=== PATIENT | male | born 1980 | race African-American/Black ===

== ENCOUNTER 2016-10-19 16:32 | Emergency (ER) | payer SELFPAY ==
[~2016-10-19 16:32] MED LIST: Iopamidol 370 76% 100 ML VIAL ONE
[2016-10-19] MEDS ORDERED: Sodium Chloride 0.9% 1,000 ML ONE ×2 (17:35→18:37)
[2016-10-19] MEDS ORDERED: Ondansetron HCl/PF 4 MG/2 ML Vial ONE (17:35)
[2016-10-19] MEDS ORDERED: Pantoprazole 40 MG VIAL ONE (17:35)
[2016-10-19 18:54] LABS: #Basophils 0.1 thou/uL (0.0-0.2); #Lymphocytes 1.1 thou/uL (1.20-3.40); #Monocytes 0.8 thou/uL (0.11-0.59); #Neutrophils 2.1 thou/uL (1.40-6.50); %Basophils 1.3 % (0.0-1.0); %Eosinophils 0.5 % (0.0-10.0); %Lymphocytes 27.4 % (21.0-51.0); %Monocytes 18.9 % (0.0-10.0); Hematocrit 45.7 % (42.0-52.0); Mean Platelet Volume 7.9 fL (7.4-10.4); White Blood Cell (WBC) Count 4.1 thou/uL (4.8-10.8)
[2016-10-19 19:06] LABS: ALT (SGPT) 127 U/L (0-55); AST (SGOT) 150 U/L (5-34); Alkaline Phosphatase 87 U/L (40-150); Anion Gap 19 mmol/L (10-20); BUN (Urea Nitrogen) 25 mg/dL (8.9-20.6); Calc. Creatinine Clearance 0 mL/min (70-130); Calcium 9.3 mg/dL (7.8-10.44); Carbon Dioxide 21 mmol/L (22-29); Chloride 102 mmol/L (98-107); Estimated GFR-MDRD 82; Globulin 4.1 g/dL (2.4-3.5); Lipase 4 U/L (8-78); Protein, Total 8.2 g/dL (6.0-8.3)
[2016-10-19 20:02] LABS: Bilirubin Negative (Negative); Blood, Urine Negative (Negative); Glucose, Urine (Dipstick) Negative (Negative); Ketone, Urine Negative (Negative); Nitrite Negative (Negative); Protein, Urine (Dipstick) Trace mg/dL (Neg-Trace)
--- NOTE | 2016-10-19 20:53 | CT ---
ABDOMEN CT WITH IV CONTRAST ENTERIC CONTRAST NOT ADMINISTERED 10/19/16 CLINICAL HISTORY: Abdominal pain with nausea and vomiting, dehydration and hypoglycemia. Reference made to 12/27/03 exam. FINDINGS: There is linear hyperdensity along the inferior margin of the spleen. No focal hepatic or splenic le sions. The spleen is enlarged in size. Moderate distention of the gallbladder. No overt hydronephros is, adrenal mass or peripancreatic inflammation. Bowel is not reliably characterized without enteric contrast. There is moderate distention of the unopacified urinary bladder. No ascites or disseminat ed free air. Regional lymph nodes are normal in size. The appendix is nondilated although incomplete ly assessed without enteric contrast. No significant periappendiceal fat stranding or fluid. Osseous structures are intact. There is mild osseous degenerative change. IMPRESSION: No definitive evidence for acute process. There is moderate distention of the gallbladder. If there are signs/symptoms related to gallbladder disease, gallbladder ultrasound may prove useful for furth er assessment. POS: [facility]
== END 2016-10-19 20:25 ==
LOC: NAV ERS 16:32
DX: K29.00 Acute gastritis without bleeding (principal); E86.0 Dehydration; R79.89 Other specified abnormal findings of blood chemistry; E78.5 Hyperlipidemia, unspecified; E78.00 Pure hypercholesterolemia, unspecified; I10 Essential (primary) hypertension
CPT/HCPCS: 36416; 74177; 80053; 81003; 83690; 85025; 96361; 96374; 96375; C9113; J2405; J7050

== ENCOUNTER 2018-11-30 14:21 | Emergency (ER) | payer OTHER, SELFPAY ==
[2018-11-30] MEDS ORDERED: Fluorescein Opthalmic Strip ONE (14:34)
[2018-11-30] MEDS ORDERED: Gentamicin Ophth Soln 0.3% 5 ml Bottle ONE (15:00)
== END 2018-11-30 15:00 | disposition home or self-care (01) ==
LOC: NAV ERS 14:21
DX: S05.01XA Injury of conjunctiva and corneal abrasion without foreign body, right eye, initial encounter (principal); X58.XXXA Exposure to other specified factors, initial encounter
CPT/HCPCS: 99283

== ENCOUNTER 2019-02-01 16:52 | Emergency (ER) | payer SELFPAY ==
[2019-02-01] MEDS ORDERED: Insulin Regular 300 UNITS/3 ML VIAL ONE (17:23)
[2019-02-01] MEDS ORDERED: Sodium Chloride 0.9% 1,000 ML ONE (17:23)
[2019-02-01] MEDS ORDERED: Ondansetron PF 4 MG/2 ML Vial ONE (17:23)
[2019-02-01 17:33] LABS: #Basophils 0.1 thou/uL (0.0-0.2); #Eosinphils 0.2 thou/uL (0.0-0.7); #Lymphocytes 1.5 thou/uL (1.20-3.40); #Monocytes 0.4 thou/uL (0.11-0.59); #Neutrophils 2.7 thou/uL (1.40-6.50); %Basophils 1.9 % (0.0-1.0); %Eosinophils 3.9 % (0.0-10.0); %Lymphocytes 30.7 % (21.0-51.0); %Monocytes 8.6 % (0.0-10.0); Hemoglobin 13.8 g/dL (14.0-18.0); Mean Corpuscular HGB CONC 32.6 g/dL (32.0-36.0); Mean Corpuscular Hemoglobin 24.6 pg (27.0-31.0); Mean Corpuscular Volume 75.4 fL (78.0-98.0); Mean Platelet Volume 8.1 fL (7.4-10.4); Platelet Count 165 thou/uL (130-400); RBC Distribution Width 13.8 % (11.5-14.5); Red Blood Cell (RBC) Count 5.63 mill/uL (4.70-6.10); White Blood Cell (WBC) Count 4.9 thou/uL (4.8-10.8)
[2019-02-01 17:49] LABS: Base Excess-Venous -0.5 mmol/L (-2.0 to 3.0); Bicarbonate (HCO3v) 24.4 mmol/L (22.0-28.0); CO2 Tension (PvCO2) 40.3 mmHg (40.0-50.0); Chloride 98 mmol/L (98-107); Potassium 3.9 mmol/L (3.5-5.1); Sodium 134 mmol/L (138-145); T. Carbon Dioxide 25.6 mmol/L (22.0-28.0); vO2 Saturation-calc 92.3 % (60.0-85.0)
[2019-02-01 17:53] LABS: ALT (SGPT) 34 U/L (8-55); AST (SGOT) 27 U/L (5-34); Albumin 4.4 g/dL (3.5-5.0); Alkaline Phosphatase 106 U/L (40-150); Anion Gap 17 mmol/L (10-20); BUN (Urea Nitrogen) 34 mg/dL (8.9-20.6); Bilirubin, Total 0.8 mg/dL (0.2-1.2); CK (CPK) 371 U/L (30-200); Calc. Creatinine Clearance 0 mL/min (70-130); Carbon Dioxide 22 mmol/L (22-29); Chloride 98 mmol/L (98-107); Estimated GFR-MDRD 45; Globulin 3.7 g/dL (2.4-3.5); Glucose 429 mg/dL (70-105); Lipase 36 U/L (8-78); Protein, Total 8.1 g/dL (6.0-8.3); Sodium 133 mmol/L (136-145)
[2019-02-01 17:54] LABS: Bilirubin Negative (Negative); Blood, Urine Trace (Negative); Clarity Clear (Clear); Glucose, Urine (Dipstick) 500 mg/dL (Negative); Leukocyte Negative (Negative); Nitrite Negative (Negative); Protein, Urine (Dipstick) Negative (Neg-Trace); Urobilinogen 0.2 mg/dL (0.2-1.0); pH, Urine 5.5 (5.0-9.0)
[2019-02-01 18:01] LABS: RBC/HPF 0-3 HPF (0-3); Squamous Epithelial 0-3 HPF (0-3)
--- NOTE | 2019-02-01 18:20 | RAD ---
PORTABLE CHEST: 02/01/19 HISTORY: Nausea and vomiting, bodyaches. Heart size and mediastinum are within normal limits. The lungs are clear of any infiltrates. No bony findings . IMPRESSION: No active intrathoracic disease. POS: [facility]
== END 2019-02-01 19:43 | disposition home or self-care (01) ==
LOC: NAV ERS 16:52
DX: E86.0 Dehydration (principal); E11.65 Type 2 diabetes mellitus with hyperglycemia; I10 Essential (primary) hypertension; F32.9 Major depressive disorder, single episode, unspecified; Z79.4 Long term (current) use of insulin; Z79.899 Other long term (current) drug therapy
CPT/HCPCS: 36416; 71045; 80053; 81003; 81015; 82010; 82330; 82435; 82550; 82803; 83690; 84132; 84295; 85014; 85025; 96361; 96374; J1815; J2405; J7050

== ENCOUNTER 2019-05-24 01:57 | Emergency (ER) | payer OTHER, SELFPAY ==
[2019-05-24] MEDS ORDERED: Adacel (T-DAP) 0.5 ML SYRINGE ONE (02:38)
[2019-05-24] MEDS ORDERED: Triple Antibiotic Oint 1 GM Packet ONE (02:38)
--- NOTE | 2019-05-24 09:35 | RAD ---
RIGHT WRIST THREE VIEWS: HISTORY: Pain. Injury. FINDINGS: The intercarpal and radial carpal joint space is preserved. No fracture. No cortical irregularity or periosteal reaction. IMPRESSION: Unremarkable right wrist three views. POS: [facility]
== END 2019-05-24 02:55 | disposition home or self-care (01) ==
LOC: NAV ERS 01:57
DX: S60.811A Abrasion of right wrist, initial encounter (principal); E11.9 Type 2 diabetes mellitus without complications; E78.5 Hyperlipidemia, unspecified; E78.00 Pure hypercholesterolemia, unspecified; I10 Essential (primary) hypertension; F32.9 Major depressive disorder, single episode, unspecified; Z79.4 Long term (current) use of insulin; Z79.899 Other long term (current) drug therapy; Z86.19 Personal history of other infectious and parasitic diseases; Z23 Encounter for immunization; W22.8XXA Striking against or struck by other objects, initial encounter; Y99.0 Civilian activity done for income or pay
CPT/HCPCS: 90715; 99001